=== PATIENT | female | born 2000 | race Two or more races ===

== ENCOUNTER 2022-05-26 22:53 | Inpatient (IN) | payer MEDICAID ==
[~2022-05-26] VITALS: Ht 167.6 cm; Wt 95.3 kg
[2022-05-26] MEDS ORDERED: LACTATED RINGER'S 1,000 ML IV SCH (23:30)
[2022-05-26] MEDS ORDERED: DERMOPLAST 60ML BOTTLE TOP PRN (23:30)
[2022-05-26] MEDS ORDERED: LIDOCAINE 2%HCL (LOCAL ANESTH.) INJ 10ml MDV IJ PRN (23:30)
[2022-05-26] MEDS ORDERED: WITCH HAZEL-GLYCERIN PAD TOP PRN (23:30)
[2022-05-26] MEDS ORDERED: PROMETHAZINE HCL 25 MG/ML 1ML IM PRN (23:30)
[2022-05-26] MEDS ORDERED: PHISODERM TOP SOLN 240ML BTL TOP PRN (23:30)
[2022-05-26] MEDS ORDERED: BUTORPHANOL TARTRATE 2 MG/1 ML VIAL IV PRN ×2 (23:30)
[2022-05-26] MEDS ORDERED: PENICILLIN G POT 5MIL/D5 50ML 50 ML IV ONE (23:30)
[2022-05-26] MEDS ORDERED: OXYTOCIN 20 UNT in SODIUM CHLORIDE 0.9% 1,000 ML IV ONE (23:30)
[2022-05-27] VITALS (16 sets, daily range): BP systolic 124–155; BP diastolic 62–96
[2022-05-27 00:09] LABS: Basophils # (auto) 0 10 ^3/uL (0-0.2); Basophils % (auto) 0.4 % (0.0-2.0); Eosinophils # (auto) 0.1 10 ^3/uL (0-0.8); Eosinophils % (auto) 0.6 % (0.0-7.0); Hematocrit 33.9 % (36.0-46.0); Hemoglobin 11.5 g/dL (12.2-16.2); Lymphocytes # (auto) 1.4 10 ^3/uL (0.4-5.4); Lymphocytes % (auto) 13.5 % (10.0-50.0); Mean Corpuscular Hemoglobin 29.1 pg (28.0-32.0); Mean Corpuscular Volume 85.7 fL (80.0-100.0); Monocytes # (auto) 0.4 10 ^3/uL (0-1.3); Neutrophils # (auto) 8.2 10 ^3/uL (1.6-8.6); Neutrophils % (auto) 81.5 % (37.0-80.0); Red Blood Cells 3.95 10^6/uL (4.0-5.20); Red Cell Distribution Width 13.9 % (11.8-14.3); White Blood Cell 10.1 10^3/uL (4.4-10.8)
[2022-05-27 00:24] LABS: INR 0.91 (0.9-1.15); Partial Thromboplastin Time 27.8 sec (24.6-33.4)
[2022-05-27 00:28] LABS: Albumin 2.5 g/dL (3.4-5.0); Calcium 8.6 mg/dL (8.5-10.1); Potassium 3.7 mmol/L (3.5-5.1)
[2022-05-27 00:28] LABS: Urine Bacteria NONE SEEN /hpf (None Seen); Urine Blood Negative /uL (Negative); Urine Mucus FEW (None Seen); Urine Specific Gravity 1.021 (1.001-1.035); Urine WBC 29 /hpf (0 - 5)
[2022-05-27 00:31] LABS: Bilirubin, Total 0.3 mg/dL (0.2-1.0); Total Protein 6.6 g/dL (6.4-8.2)
[2022-05-27 00:32] LABS: Alcohol, Urine < 3.0 mg/dL (0-10); Amphetamine Screen, Urine NEGATIVE (NEGATIVE); Barbiturate Scree,Urine NEGATIVE (NEGATIVE); Cannabinoid Screen, Urine POSITIVE (NEGATIVE); Opiate Scree,Urine NEGATIVE (NEGATIVE); Phencyclidine Screen, Urine NEGATIVE (NEGATIVE)
[2022-05-27 00:40] LABS: Benzodiazephine Screen, Urine NEGATIVE (NEGATIVE); Cocaine Screen, Urine NEGATIVE (NEGATIVE)
[2022-05-27] MEDS ORDERED: OXYTOCIN 20 UNT in SODIUM CHLORIDE 0.9% 1,000 ML IV ONE (00:45)
[2022-05-27] MEDS ORDERED: LIDOCAINE HCL 2 %PF INJ 10ML AMP IJ ONE (01:00)
[2022-05-27] MEDS ORDERED: ROPIVACAINE HCL 200 ML EPI SCH (01:00)
[2022-05-27] MEDS ORDERED: ePHEDrine SULFATE 50 MG/ML AMP IV ONE (01:00)
[2022-05-27] MEDS ORDERED: fentaNYL CITRATE 100 MCG/2 ML VL IV ONE (01:00)
[2022-05-27] MEDS ORDERED: LACTATED RINGER'S 1,000 ML IV ONE (01:00)
[2022-05-27] MEDS ORDERED: NALOXONE HCL 0.4 MG/ML VIAL IV ONE (01:00)
[2022-05-27] MEDS ORDERED: LACT. RINGERS/OXYTOCIN 20UNITS 500 ML IV ONE ×2 (01:00→01:30)
[2022-05-27] MEDS ORDERED: NS IV ONE (01:28)
[2022-05-27] MEDS ORDERED: OXYTOCIN IV ONE (01:28)
[2022-05-27] MEDS ORDERED: fentaNYL CITRATE 100 MCG/2 ML VL ONE (02:16)
[2022-05-27] MEDS ORDERED: HYDROmorphone HCL 2 MG/ML VL/or syr ONE (02:16)
[2022-05-27] MEDS ORDERED: MIDAZOLAM HCL 2MG/2ML 2ml VIAL (1mg/ml) ONE (02:16)
[2022-05-27] MEDS ORDERED: SUCCINYLCHOLINE CHLORIDE 20 MG/ML 10ML VIAL IV ONE (02:31)
[2022-05-27] MEDS ORDERED: HYDROmorphone HCL 2 MG/ML VL/or syr IV PRN ×2 (03:00→03:30)
[2022-05-27] MEDS ORDERED: MORPHINE SULFATE 4 MG/ML SYR/VIAL IV PRN (03:00)
[2022-05-27] MEDS ORDERED: MIDAZOLAM HCL 2MG/2ML 2ml VIAL (1mg/ml) IV PRN (03:00)
[2022-05-27] MEDS ORDERED: METOCLOPRAMIDE HCL 5MG/ml INJ 2ml VIAL IV PRN (03:00)
[2022-05-27] MEDS ORDERED: ONDANSETRON HCL 4 MG/2 ML VIAL IV PRN ×2 (03:00→03:30)
[2022-05-27] MEDS ORDERED: ePHEDrine SULFATE 50 MG/ML AMP IV PRN (03:00)
[2022-05-27] MEDS ORDERED: LABETALOL HCL 5 MG/ML 4ML SYRINGE IV PRN (03:00)
[2022-05-27] MEDS ORDERED: hydrALAZINE HCL 20 MG/ML VL IV PRN (03:00)
[2022-05-27] MEDS ORDERED: PROPOFOL 10 MG/ML 20 ML IV ONE (03:07)
[2022-05-27] MEDS ORDERED: METOCLOPRAMIDE HCL 5MG/ml INJ 2ml VIAL ONE (03:10)
[2022-05-27] MEDS ORDERED: ONDANSETRON HCL 4 MG/2 ML VIAL ONE (03:10)
[2022-05-27] MEDS ORDERED: IBUP800T27 PO (03:26)
[2022-05-27] MEDS ORDERED: DOCU-94 PO (03:26)
[2022-05-27] MEDS ORDERED: HYDR-4902 PO (03:26)
[2022-05-27] MEDS ORDERED: PENICILLIN G POTASSIUM 2,500,000 UNITS in D5W 5% 50 ML IV SCH (03:30)
[2022-05-27] MEDS ORDERED: LACT. RINGERS/OXYTOCIN 20UNITS 1,000 ML IV ONE (03:30)
[2022-05-27] MEDS ORDERED: GUM (CHEWING) 1 GUM CHEW CHEW ONE (03:30)
[2022-05-27] MEDS ORDERED: ACETAMINOPHEN IV 1000 MG/100ML (10MG/ML) IV ONE (03:45)
[2022-05-27] MEDS: ceFAZolin 1GM/50ML 50 ML IV SCH ×3 (05:02→19:47)
[2022-05-27] MEDS ORDERED: NS/OXYTOCIN 20UNITS 1,000 ML IV ONE (05:51)
[2022-05-27] MEDS ORDERED: NS/OXYTOCIN 20UNITS 1,000 ML IV SCH ×2 (06:00→09:15)
[2022-05-27] MEDS ORDERED: NS/OXYTOCIN 20UNITS 500 ML IV ONE (06:45)
[2022-05-27] MEDS ORDERED: miSOPROStol 100 mcg TAB PR PRN (08:00)
[2022-05-27] MEDS ORDERED: miSOPROStol 100 mcg TAB SL PRN (08:00)
[2022-05-27] MEDS: HYDROcodone-ACET 5/325MG TAB PO PRN (16:24)
[2022-05-27] MEDS ORDERED: ETOMIDATE (2MG/ML) 20ML VIAL IV ONE (16:33)
[2022-05-27] MEDS: SIMETHICONE 80 MG CHEWABLE TABLET PO SCH ×2 (18:04→21:51)
[2022-05-27] MEDS: IBUPROFEN 800 MG TAB PO PRN (19:48)
[2022-05-27 20:20] LABS: Basophils # (auto) 0 10 ^3/uL (0-0.2); Basophils % (auto) 0.6 % (0.0-2.0); Eosinophils # (auto) 0.1 10 ^3/uL (0-0.8); Eosinophils % (auto) 0.9 % (0.0-7.0); Hematocrit 32.8 % (36.0-46.0); Hemoglobin 10.7 g/dL (12.2-16.2); Lymphocytes # (auto) 1.4 10 ^3/uL (0.4-5.4); Lymphocytes % (auto) 15.7 % (10.0-50.0); Mean Corpuscular Hemoglobin 28.3 pg (28.0-32.0); Mean Corpuscular Hgb Conc. 32.5 g/dL (32.0-36.0); Monocytes # (auto) 0.4 10 ^3/uL (0-1.3); Monocytes % (auto) 4.5 % (0.0-12.0); Neutrophils # (auto) 6.9 10 ^3/uL (1.6-8.6); Neutrophils % (auto) 78.3 % (37.0-80.0); Nucleated Red Blood Cells % 0.1 %; Red Blood Cells 3.77 10^6/uL (4.0-5.20); Red Cell Distribution Width 14.1 % (11.8-14.3); White Blood Cell 8.9 10^3/uL (4.4-10.8)
[2022-05-27] MEDS: DOCUSATE SOD 100 MG CAP PO SCH (21:51)
[2022-05-28] VITALS (10 sets, daily range): BP systolic 112–135; BP diastolic 60–80
[2022-05-28] MEDS: HYDROcodone-ACET 5/325MG TAB PO PRN ×5 (01:26→23:46)
[2022-05-28] MEDS: IBUPROFEN 800 MG TAB PO PRN ×3 (03:49→20:54)
[2022-05-28] MEDS: SIMETHICONE 80 MG CHEWABLE TABLET PO SCH ×4 (05:40→22:09)
[2022-05-28 07:07] LABS: Basophils # (auto) 0 10 ^3/uL (0-0.2); Basophils % (auto) 0.2 % (0.0-2.0); Eosinophils # (auto) 0.1 10 ^3/uL (0-0.8); Eosinophils % (auto) 1.5 % (0.0-7.0); Hemoglobin 9.3 g/dL (12.2-16.2); Lymphocytes # (auto) 1.6 10 ^3/uL (0.4-5.4); Lymphocytes % (auto) 17.1 % (10.0-50.0); Mean Corpuscular Hgb Conc. 34.4 g/dL (32.0-36.0); Mean Corpuscular Volume 87.2 fL (80.0-100.0); Monocytes # (auto) 0.4 10 ^3/uL (0-1.3); Monocytes % (auto) 4.1 % (0.0-12.0); Neutrophils # (auto) 7.1 10 ^3/uL (1.6-8.6); Neutrophils % (auto) 77.1 % (37.0-80.0); Nucleated Red Blood Cells % 0.1 %; Red Cell Distribution Width 13.6 % (11.8-14.3); White Blood Cell 9.2 10^3/uL (4.4-10.8)
[2022-05-28 07:07] LABS: RPR Non Reactive (Non Reactive)
[2022-05-28 10:06] LABS: Rubella Antibodies, IgG 0.94 index (Immune >0.99)
[2022-05-28] MEDS: DOCUSATE CALCIUM 240 MG CAP PO SCH (10:32)
[2022-05-28] MEDS: DOCUSATE SOD 100 MG CAP PO SCH ×2 (10:32→22:10)
[2022-05-28] MEDS ORDERED: BISACODYL 10 MG RECT SUPP PR PRN (22:15)
[2022-05-29 03:00] VITALS: BP 138/77
[2022-05-29] MEDS: HYDROcodone-ACET 5/325MG TAB PO PRN ×4 (03:50→22:35)
[2022-05-29] MEDS: SIMETHICONE 80 MG CHEWABLE TABLET PO SCH ×4 (05:41→22:34)
[2022-05-29 07:30] VITALS: BP 140/85
[2022-05-29] MEDS: DOCUSATE CALCIUM 240 MG CAP PO SCH (10:07)
[2022-05-29] MEDS: DOCUSATE SOD 100 MG CAP PO SCH ×2 (10:07→22:34)
[2022-05-29] MEDS: IBUPROFEN 800 MG TAB PO PRN ×2 (10:08→19:00)
[2022-05-29 11:17] VITALS: BP 145/80
[2022-05-29 15:18] VITALS: BP 137/72
[2022-05-29 19:00] VITALS: BP 116/62
[2022-05-29 23:19] VITALS: BP 123/63
[2022-05-30 03:00] VITALS: BP 142/86
[2022-05-30] MEDS: HYDROcodone-ACET 5/325MG TAB PO PRN (03:34)
[2022-05-30 07:00] VITALS: BP 136/78
[2022-05-30] MEDS: IBUPROFEN 800 MG TAB PO PRN (08:21)
== END 2022-05-30 11:00 | disposition home or self-care (01) | DRG 540 ==
LOC: LDRP 22:53 → OBSVTOIN 23:12 → LDRP 05-27 03:26
PROVIDERS: ADMIT Obstetrics & Gynecology; ATTEND Obstetrics & Gynecology
PROC: 10D00Z1 Extraction of Products of Conception, Low, Open Approach (ICD-10-PCS; principal; 2022-05-27 02:40)
DX: O76 Abnormality in fetal heart rate and rhythm complicating labor and delivery (principal); O99.324 Drug use complicating childbirth; Z20.822 Contact with and (suspected) exposure to COVID-19; F19.90 Other psychoactive substance use, unspecified, uncomplicated; Z3A.39 39 weeks gestation of pregnancy; Z37.0 Single live birth
CPT/HCPCS: 36415; 59025; 76805; 80053; 80307; 81001; 81002; 84550; 85025; 85610; 85730; 86592; 86703; 86762; 86850; 86900; 86901; 87077; 87186; 87205; 87340; 94760; 94762; 96360; 96361; 96365; 96366; 96374; G0378; J0131; J0330; J0690; J2001; J2250; J2405; J2540; J2590; J2704; J7060

== ENCOUNTER 2022-06-08 13:09 | Emergency (ER) | payer MEDICAID ==
[~2022-06-08] VITALS: Ht 167.6 cm; Wt 93.6 kg
[~2022-06-08 13:09] MED LIST: DOCU-94 PO; HYDR-4902 PO; IBUP800T27 PO
[2022-06-08 13:23] VITALS: BP 123/76
[2022-06-08] MEDS ORDERED: CEPH-322 PO (13:57)
== END 2022-06-08 15:25 | disposition home or self-care (01) ==
LOC: ER 13:09
DX: O90.89 Other complications of the puerperium, not elsewhere classified (principal); L03.311 Cellulitis of abdominal wall; F17.210 Nicotine dependence, cigarettes, uncomplicated; Z98.890 Other specified postprocedural states; Z79.899 Other long term (current) drug therapy; Z88.8 Allergy status to other drugs, medicaments and biological substances